=== PATIENT | female | born 1945 | race Caucasian/White ===

== ENCOUNTER 2020-07-07 07:49 | Day surgery (SDC) | payer MEDICARE, OTHER ==
[~2020-07-07] VITALS: Ht 157.5 cm; Wt 108.4 kg
[~2020-07-07 07:49] MED LIST: ASPI81CH PO; ATOR10 PO; ATOR40TA PO; B-125000 MCG PO; CHOL10002 PO; EPIPEN0.3 MG/0.3 IJ; FLURBIPROFEN PO; LEVFLO500 PO; LOSA50 PO; METF500 PO; MULTI VITAMIN1 EACH PO; TETR250 PO
--- NOTE | 2020-07-07 08:15 | NUR ---
07/07/20 0815 Samir Turcios CALL LIGHT WITHIN REACH
== END 2020-07-07 09:50 | disposition home or self-care (01) ==
LOC: ORSCSDS 07:49
PROVIDERS: Ophthalmology
PROC: 08RK3JZ Replacement of Left Lens with Synthetic Substitute, Percutaneous Approach (ICD-10-PCS; principal; 2020-07-07 09:00)
DX: H25.12 Age-related nuclear cataract, left eye (principal); I10 Essential (primary) hypertension; J44.9 Chronic obstructive pulmonary disease, unspecified; E11.9 Type 2 diabetes mellitus without complications; E66.01 Morbid (severe) obesity due to excess calories; Z68.41 Body mass index [BMI] 40.0-44.9, adult; Z79.899 Other long term (current) drug therapy; Z79.84 Long term (current) use of oral hypoglycemic drugs
CPT/HCPCS: 82947; J2001; J2250; J3010; J3301; J7040; V2632

== ENCOUNTER 2021-04-12 06:07 | Day surgery (SDC) | payer MEDICARE, OTHER ==
[~2021-04-12] VITALS: Ht 157.5 cm; Wt 108.3 kg
[~2021-04-12 06:07] MED LIST changes: +ZINC15 PO
--- NOTE | 2021-04-12 06:53 | NUR ---
Ambulatory in Day Surgery History, Chart, Medications and Allergies reviewed before start of procedure. Lungs clear T/O to Auscultation. Patient confirms NPO status and agrees with scheduled surgery. Pre-Op teaching done. Pt verbalizes understanding.
--- NOTE | 2021-04-12 09:31 | NUR ---
04/12/21 0931 Amalia Story NO SPECIMEN PER VO DR. KASEY M.D. DREA SARGENT RN
--- NOTE | 2021-04-12 19:14 | NUR ---
SHIFT SUMMARY PT S/P FOR L TOTAL KNEE WITH PARKS. UP IN THE RECLINER, VOIDING, AND TOLERATING PO INTAKE WELL. MINIMAL C/O PAIN AND TREATED PER EMR. A/O X4; PLEASANT AND COOPERATIVE WITH CARE. AQUACEL AND JAELYN WRAP IN PLACE AND CDI. WORKED WITH P.T. TODAY AND DID WELL. WILL POSSIBLY DC HOME TOMORROW. VSS.
--- NOTE | 2021-04-13 04:41 | NUR ---
SHIFT SUMMARY: PT POD#1 FOR A LEFT TKA. JAELYN WRAP AND AQUACEL DRESSING C/D/I WITHOUT VISIBLE DRG. PAIN BEING MANAGED WITH SCHEDULED TORADOL AND TYLENOL. RATING PAIN IS 1/10 ON PAIN SCALE. PT OUT OF BED TO BATHROOM WITH 1 MINIMAL ASSIST AND FWW+GB. PT AMBULATED HALLWAY ONCE THIS SHIFT. SAGAR PO, DENIES N/V. CBG COVERED WITH 1 UNIT OF INSULIN PER EMAR. PLAN FOR PT TODAY AND POSSIBLE DISCHARGE HOME.
[2021-04-13 04:56] LABS: BASOPHILS ABSOLUTE AUTO 0.02 K/mm3 (0.00-0.23); BASOPHILS PERCENT AUTO 0 % (0-2); EOSINOPHILS PERCENT AUTO 0 % (0-6); Hematocrit 31.8 % (33.0-51.0); Hemoglobin 10.6 g/dL (11.5-16.0); IMMATURE GRAN ABSOLUTE AUTO 0.05 K/mm3 (0.00-0.10); IMMATURE GRAN PERCENT AUTO 0 % (0-1); LYMPHOCYTES ABSOLUTE AUTO 1.49 K/mm3 (0.84-5.20); LYMPHOCYTES PERCENT AUTO 11 % (21-46); MONOCYTES ABSOLUTE AUTO 1.07 K/mm3 (0.16-1.47); MONOCYTES PERCENT AUTO 8 % (4-13); Mean Corpuscular HGB 30.5 pg (26.0-34.0); Mean Corpuscular HGB Conc 33.3 g/dL (31.5-36.5); Mean Corpuscular Volume 92 fL (80-100); Mean Platelet Volume 10.3 fL (9.1-12.4); NEUTROPHILS ABSOLUTE AUTO 11.11 K/mm3 (1.96-9.15); NEUTROPHILS PERCENT AUTO 81 % (41-73); Platelet Count 258 K/mm3 (150-400); RDW Coefficient Variation 12.6 % (11.7-14.2); RDW Standard Deviation 41.7 fL (35.1-46.3); Red Blood Cell Count 3.47 M/mm3 (3.80-5.20); White Blood Cell Count 13.74 K/mm3 (4.00-11.30)
[2021-04-13 05:17] LABS: Bun/Creatinine Ratio 25.7 (12.0-20.0); Calcium, Blood 8.8 mg/dL (8.5-10.1); Creatinine, Blood 0.97 mg/dL (0.40-1.00); Magnesium, Blood 1.5 mg/dL (1.6-2.4); Potassium, Blood 4.5 mmol/L (3.5-5.5)
[2021-04-13] MEDS ORDERED: XARELTO10 M1 PO (10:48)
--- NOTE | 2021-04-13 12:39 | NUR ---
DISCHARGE SUMMARY PATIENT ALERT AND ORIENTED THROUGHOUT MORNING. TOLERATING REGULAR DIET AND FLUIDS. CLEARED PHYSICAL THERAPY. VOIDING WELL. PAIN CONTROLLED WITH PO PAIN MEDS. DISCHARGE EDUCATION GIVEN ON NEW RXS, WOUND CARE, ACTIVITY, DIET, AND FOLLOW UP APPTS. IV DC'D WNL. PATIENT LEFT UNIT VIA WHEELCHAIR FOR HOME WITH DAUGHTER AT 1215. AQUACEL, JAELYN WRAP, GUALBERTO HOSE IN PLACE. DRESSING C/D/I.
== END 2021-04-13 12:33 | disposition home or self-care (01) ==
LOC: ORSCMMR 06:07 → ORD 07:30 → ORSCMMR 07:30 → SURS 10:13 → ORSCMMR 04-13 12:33 → SURS 04-13 12:33
PROVIDERS: Orthopaedic Surgery
PROC: 8E0YXBZ Computer Assisted Procedure of Lower Extremity (ICD-10-PCS; principal; 2021-04-12 07:30)
PROC: 0SRD0JA Replacement of Left Knee Joint with Synthetic Substitute, Uncemented, Open Approach (ICD-10-PCS; principal; 2021-04-12 07:30)
DX: M17.12 Unilateral primary osteoarthritis, left knee (principal); J44.9 Chronic obstructive pulmonary disease, unspecified; E11.9 Type 2 diabetes mellitus without complications; I10 Essential (primary) hypertension; E78.5 Hyperlipidemia, unspecified; Z79.82 Long term (current) use of aspirin; Z79.84 Long term (current) use of oral hypoglycemic drugs; Z79.899 Other long term (current) drug therapy
CPT/HCPCS: 36415; 73560-LT; 80048; 82947; 83735; 85025; 97110; 97110-CQ; 97116; 97116-CQ; 97162; 97530; 97530-CQ; A9270; C1776; J0171; J0690; J0735; J1100; J1815; J1885; J2250; J2370; J2405; J2704; J2795; J3010; J7120

== ENCOUNTER → 2022-02-16 | Outpatient (CLI) | payer MEDICARE, OTHER ==
[~2022-02-16] MED LIST changes: +XARELTO10 M1 PO
== END | disposition home or self-care (01) ==
LOC: LAB SHORT 09:49
DX: A44.9 Bartonellosis, unspecified (principal); L72.0 Epidermal cyst; D22.62 Melanocytic nevi of left upper limb, including shoulder; D22.5 Melanocytic nevi of trunk; D22.61 Melanocytic nevi of right upper limb, including shoulder; D22.39 Melanocytic nevi of other parts of face; L81.4 Other melanin hyperpigmentation; L82.1 Other seborrheic keratosis
CPT/HCPCS: 87070; 87077; 87186; 87205

== ENCOUNTER → 2022-04-07 | Outpatient (CLI) | payer MEDICARE, OTHER ==
[2022-04-08 10:51] LABS: Adenovirus F 40/41 Not Detected (NOT DETECT); Astrovirus Not Detected (NOT DETECT); Campylobacter Sp Not Detected (NOT DETECT); Cryptosporidium Not Detected (NOT DETECT); Cyclospora Cayetanensis Not Detected (NOT DETECT); E. Coli O157 Not Detected (NOT DETECT); Entamoeba Histolytica Not Detected (NOT DETECT); Enteroaggregative E. coli-EAEC Not Detected (NOT DETECT); Enteropathogenic E. coli-EPEC Not Detected (NOT DETECT); Enterotoxigenic E. coli-ETEC Not Detected (NOT DETECT); Giardia Lamblia Not Detected (NOT DETECT); Norovirus GI/GII Not Detected (NOT DETECT); Plesiomonas Shigelloides Not Detected (NOT DETECT); Rotavirus A Not Detected (NOT DETECT); Salmonella Sp Not Detected (NOT DETECT); Sapovirus Not Detected (NOT DETECT); Shiga Toxin-prod E. coli-STEC Not Detected (NOT DETECT); Shigella/Enteroin E. coli-EIEC Not Detected (NOT DETECT); Vibrio Cholerae Not Detected (NOT DETECT); Vibrio Sp Not Detected (NOT DETECT); Yersinia Enterocolitica Not Detected (NOT DETECT)
== END | disposition home or self-care (01) ==
LOC: LAB SHORT 09:00 → LAB 09:00 → LAB FUT 04-06 11:45
PROVIDERS: Family Medicine
DX: R19.7 Diarrhea, unspecified (principal)
CPT/HCPCS: 87507

== ENCOUNTER → 2022-04-08 | Outpatient (CLI) | payer MEDICARE, OTHER | END | disposition home or self-care (01) | LOC: LAB SHORT 08:47 → LAB 08:47 | DX: R19.7 Diarrhea, unspecified (principal) | CPT/HCPCS: 83993 ==

== ENCOUNTER 2022-11-28 11:29 | Day surgery (SDC) | payer MEDICARE, OTHER ==
[~2022-11-28] VITALS: Ht 157.5 cm; Wt 104.6 kg
[2022-11-28] MEDS ORDERED: Robaxin750 MG (12:01)
== END 2022-11-28 13:50 | disposition home or self-care (01) ==
LOC: ORSCSDS 11:29
PROVIDERS: Internal Medicine Gastroenterology
PROC: 0DJD8ZZ Inspection of Lower Intestinal Tract, Via Natural or Artificial Opening Endoscopic (ICD-10-PCS; principal; 2022-11-28 15:00)
DX: Z12.11 Encounter for screening for malignant neoplasm of colon (principal); Z86.010 Personal history of colon polyps; K57.30 Diverticulosis of large intestine without perforation or abscess without bleeding; Z83.71 Family history of colonic polyps; J45.909 Unspecified asthma, uncomplicated; I10 Essential (primary) hypertension; Z79.899 Other long term (current) drug therapy; E78.5 Hyperlipidemia, unspecified; J44.9 Chronic obstructive pulmonary disease, unspecified; E11.40 Type 2 diabetes mellitus with diabetic neuropathy, unspecified; Z79.84 Long term (current) use of oral hypoglycemic drugs; E66.01 Morbid (severe) obesity due to excess calories; Z68.41 Body mass index [BMI] 40.0-44.9, adult
CPT/HCPCS: 82947; J2704; J7120

== ENCOUNTER → 2023-03-22 | Outpatient (CLI) | payer MEDICARE, OTHER ==
[~2023-03-22] MED LIST changes: +Robaxin750 MG
== END | disposition home or self-care (01) ==
LOC: LAB SHORT 16:15 → LAB 16:15
DX: L01.01 Non-bullous impetigo (principal)
CPT/HCPCS: 87070; 87205

== ENCOUNTER 2024-12-09 17:50 | Emergency (ER) | payer MEDICARE, OTHER ==
[~2024-12-09] VITALS: Ht 154.9 cm; Wt 108.9 kg
[2024-12-09 19:01] LABS: BASOPHILS ABSOLUTE AUTO 0.05 K/mm3 (0.00-0.23); BASOPHILS PERCENT AUTO 0 % (0-2); EOSINOPHILS ABSOLUTE AUTO 0.35 K/mm3 (0.00-0.68); EOSINOPHILS PERCENT AUTO 3 % (0-6); Hematocrit 31.9 % (33.0-51.0); Hemoglobin 10.3 g/dL (11.5-16.0); IMMATURE GRAN ABSOLUTE AUTO 0.08 K/mm3 (0.00-0.10); IMMATURE GRAN PERCENT AUTO 1 % (0-1); LYMPHOCYTES ABSOLUTE AUTO 2.31 K/mm3 (0.84-5.20); LYMPHOCYTES PERCENT AUTO 17 % (21-46); MONOCYTES PERCENT AUTO 8 % (4-13); Mean Corpuscular HGB 31.1 pg (26.0-34.0); Mean Corpuscular HGB Conc 32.3 g/dL (31.5-36.5); Mean Corpuscular Volume 96 fL (80-100); Mean Platelet Volume 9.9 fL (9.1-12.4); NEUTROPHILS PERCENT AUTO 72 % (41-73); Platelet Count 301 K/mm3 (150-400); RDW Coefficient Variation 12.2 % (11.7-14.2); RDW Standard Deviation 42.5 fL (35.1-46.3); Red Blood Cell Count 3.31 M/mm3 (3.80-5.20); White Blood Cell Count 13.39 K/mm3 (4.00-11.30)
[2024-12-09 19:26] LABS: Albumin, Blood 3.5 g/dL (3.4-5.0); Bilirubin, Total 0.3 mg/dL (0.1-1.0); Bun/Creatinine Ratio 33.7 (12.0-20.0); Calcium, Blood 9.9 mg/dL (8.5-10.1); Creatinine, Blood 1.01 mg/dL (0.40-1.00); Globulin, Blood 3.5 g/dL (2.2-4.0); Potassium, Blood 4.4 mmol/L (3.5-5.5)
[2024-12-09] MEDS ORDERED: Ibuprofen 600 MG Tab PO ONE (19:45)
[2024-12-09] MEDS ORDERED: Acetaminophen 500 MG Tab PO ONE (19:50)
[2024-12-09] MEDS ORDERED: Ondansetron HCl 2 MG / ML 2ML Vial IV ONE (20:35)
[2024-12-09] MEDS ORDERED: Ondansetron HCl 2 MG / ML 2ML Vial ONE (20:37)
[2024-12-09] MEDS ORDERED: Ketorolac Tromethamine 15mg Vial IV ONE (21:20)
[2024-12-09 22:00] VITALS: BP 162/68
[2024-12-09] MEDS ORDERED: ONDA4 PO (22:01)
[2024-12-09] MEDS ORDERED: Scopolamine Hydrobromide Patch TOP ONE (22:05)
== END 2024-12-09 22:39 | disposition home or self-care (01) ==
LOC: ER 17:50
PROVIDERS: Student in an Organized Health Care Education/Training Program
DX: S01.01XA Laceration without foreign body of scalp, initial encounter (principal); S06.0X0A Concussion without loss of consciousness, initial encounter; S80.12XA Contusion of left lower leg, initial encounter; S80.11XA Contusion of right lower leg, initial encounter; Z88.2 Allergy status to sulfonamides; Z79.84 Long term (current) use of oral hypoglycemic drugs; Z79.899 Other long term (current) drug therapy; V03.00XA Pedestrian on foot injured in collision with car, pick-up truck or van in nontraffic accident, initial encounter
CPT/HCPCS: 12002; 70450; 73562-RT; 73590; 73630; 80053; 85025; 93005; 93010; 96374-59; 96375-59; 99285-25; A9270; J1885; J2405